=== PATIENT | female | born 1935 | race Caucasian/White ===

== ENCOUNTER 2024-10-10 08:04 | Day surgery (SDC) | payer MEDICARE, BC ==
[~2024-10-10] VITALS: Ht 157.5 cm; Wt 79.1 kg
[2024-10-10] VITALS (8 sets, daily range): BP systolic 123–152; BP diastolic 62–74; PULSE 61–80; RESP 13–18; TEMP 98.1; O2SAT 92–96
[2024-10-10] MEDS ORDERED: VANCOMYCIN 1,500MG inj. 1,500 MG in normal saline 500ml IV soln 300 ML IV ONE (08:36)
[2024-10-10] MEDS ORDERED: ceFAZolin 2gm/dext,iso 50mL 50 ML IV ONE (08:36)
[2024-10-10] MEDS ORDERED: ISOS60TA71 PO (08:51)
[2024-10-10] MEDS ORDERED: BREX2TAB PO (08:51)
[2024-10-10] MEDS ORDERED: ATOR40TA72 PO (08:51)
[2024-10-10] MEDS ORDERED: ESOM40CA66 PO (08:51)
[2024-10-10] MEDS ORDERED: CARV6.2553 PO (08:51)
[2024-10-10] MEDS ORDERED: LOSA100T58 PO (08:51)
[2024-10-10] MEDS ORDERED: BREX0.5T PO (08:51)
[2024-10-10] MEDS ORDERED: HYDR25TA4 PO (08:52)
[2024-10-10] MEDS ORDERED: BENZ-268 PO (08:53)
[2024-10-10] MEDS ORDERED: FLUO20CA41 PO (08:54)
[2024-10-10] MEDS ORDERED: DONE10TA19 PO (08:55)
[2024-10-10 08:58] LABS: MEAN PLATELET VOLUME 9.1 FL (7.4-10.4); RED CELL DISTRIBUTION WIDTH 17.3 % (11.5-14.5)
[2024-10-10 09:09] LABS: INR 1.1 INR
[2024-10-10] MEDS: VANCOMYCIN/H2O 1.5g/300mL PB 300 ML IV ONE (09:16)
[2024-10-10] MEDS: normal saline 1000ml 1,000 ML IV SCH (09:17)
[2024-10-10 09:22] LABS: CREATININE 0.94 MG/DL (0.40-0.90); TOTAL CARBON DIOXIDE 28.4 MMOL/L (24-32); eCRCL 34 ML/MIN; eGFR 56 ML/MIN
[2024-10-10] MEDS: potassium Cl 20 mEq SR tablet PO STA (09:54)
--- NOTE | 2024-10-10 10:18 | ELECTROCARDIOGRAPH REPORT ---
[facility] Test Date: 2024-10-10 Test Time: 08:22:22 Pat Name: LUH DOYLE Department: SHORT STAY 1ST FLOOR Room: Gender: F Gambling Cashier: ASHLEY : 1935 Requested By: MORIAH WALDRON Order Number: [id number] Reading MD: Dr. JASMEET Wagoner Measurements Intervals [place] Rate: 67 P: 70 MO: 185 QRS: -69 QRSD: 157 T: 93 QT: 439 QTc: 464 Interpretive Statements Sinus rhythm Left bundle branch block Electronically Signed On 10-10-2024 15:51:[address] JASMEET Wagoner Please click the below link to view image of tracing.
[2024-10-10] MEDS ORDERED: fentaNYL/PF 50MCG/1 ML 2ML syringe ONE (10:44)
[2024-10-10] MEDS ORDERED: midazolam 1 mg/ML 2ml injection ONE (10:44)
[2024-10-10] MEDS ORDERED: LIDOcaine 1% W/epiNEPHrine 1:100,000 20ml vial ONE (10:44)
[2024-10-10] MEDS ORDERED: vancomycin 1,000mg inj ONE (10:44)
[2024-10-10] MEDS ORDERED: iohexol 350 MG/ML 50ML vial IV ONE (10:44)
[2024-10-10] MEDS ORDERED: flumazenil 0.1 mg/ml inj. 10mL vial IV ONE (12:11)
[2024-10-10] MEDS ORDERED: normal saline 1000ml 1,000 ML IV SCH (13:40)
--- NOTE | 2024-10-10 14:27 | RADIOLOGY REPORT ---
EXAM: DI CHEST,SINGLE VIEW Indication: s/p Pacemaker Technique: Single frontal view of the chest was obtained Comparison: None FINDINGS: Lines and Tubes: Cardiac pacemaker projects over the left chest wall. Lungs: No focal consolidation. Pleura: No effusion. No pneumothorax. Cardiomediastinal contours: Unremarkable. Atherosclerotic vascular calcifications of the thoracic ao rta are noted. Bones: No acute osseous abnormality. IMPRESSION: No acute cardiopulmonary disease.
--- NOTE | 2024-10-11 16:34 | CARDIOLOGY REPORT ---
DATE OF SERVICE: 10/10/2024 DICTATING PHYSICIAN: AMAN WALDRON DO CARDIAC CATHETERIZATION REPORT REFERRING PHYSICIAN: Aman Waldron DO PROCEDURES PERFORMED: * Coronary venography. * Placement of a coronary venous/LV electrode. * Placement of an RV ICD electrode. * Placement of a right atrial electrode. * Implant of a biventricular pacemaker / ICD pulse generator. * 90 minutes conscious sedation supervision. PREOPERATIVE DIAGNOSES: * Cardiomyopathy with nondilated left ventricle. * Left bundle branch block. * LVEF 30%-35%. * Class II to III symptoms. POSTOPERATIVE DIAGNOSES: * Cardiomyopathy with nondilated left ventricle. * Left bundle branch block. * LVEF 30%-35%. * Class II to III symptoms. CLINICAL HISTORY: This 88-year-old woman has recently been seen by me for complaints of increasing dyspnea and fatigue. An echocardiogram demonstrates a reduction in her LVEF to 30%-35% in conjunction with the presence of left bundle branch block. The patient also clearly had wall motion abnormalities/dyssynchrony of LV contractility in keeping with LBBB. ANESTHESIA: Conscious sedation with local to skin. DEVICES IMPLANTED: Medtronic coronary venous/LV electrode model #4798, serial #[id number]; Medtronic RV ICD electrode, model #6935 and serial #[id number]; Medtronic atrial electrode model #4076 and serial #[id number]; Medtronic pulse generator model #[id number] and serial #[id number]. DESCRIPTION OF PROCEDURE: The patient was sedated with fentanyl and Versed. She was then prepared and draped in the usual manner. The left pectoral region was very liberally infiltrated with 1% lidocaine containing a 1 to 100,000 mixture of epinephrine. Using a micropuncture set, a small guidewire was placed in the left subclavian vein. A 5 cm incision was made directly below the guidewire and a subcutaneous pocket was created with electrocautery. The guidewire was then pulled into the pocket and using a micropuncture size up sheath, a 9-Malawian dilator and sheath assembly were placed in the central venous circulation. The dilator and guidewire were removed and an 8-Malawian extended multipurpose catheter was positioned in the coronary sinus and directly into a posterolateral coronary vein. Coronary venography was performed, which also demonstrated a satisfactory mid-to-high lateral coronary vein. Nevertheless, the left ventricular electrode was positioned in the posterolateral vein. The electrode was secured to the sidewall using standard technique. Sensing and pacing evaluation demonstrated an impedance of 798 ohms, a pacing threshold of 1.25 volts and a pulse width of 0.4 milliseconds. Using the same Seldinger technique and micropuncture set, access was gained to the left subclavian and a 9.5-Malawian sheath was placed in the central venous circulation. Using the sheath, the RV ICD electrode was passed down to the right atrium prolapsed across the tricuspid valve and ultimately placed in the right ventricular apex. The screw was extended. The stylet was withdrawn. Sensing and pacing demonstrated an R wave of 3.8 millivolts and impedance of 551 ohms and a threshold for capture of 0.5 volts at a pulse width of 0.4 milliseconds. A 7-Malawian sheath was also placed in the subclavian vein using the same Seldinger technique. This sheath was used to pass the right atrial electrode into the mid-right atrium and then using a J-shaped stylet, it was positioned in the right atrial appendage. The screw was extended. The stylet was withdrawn. Sensing and pacing evaluation demonstrated a P wave amplitude of 2.5 millivolts, an impedance of 494 ohms and a threshold for capture of 0.5 millivolts with a pulse width of 0.4 milliseconds. All sheaths were removed while ensuring stability of the electrodes and fluoroscopic observation. A 3-0 Vicryl suture was placed around the electrodes at their exit point from the pectoral fascia. The electrodes were then secured to the pectoral fascia using two 0 Ethibond sutures around each of the suturing sleeves. Next, the generator was attached to the electrodes and together they were placed in the pocket. The generator was suspended with an 0 Ethibond suture. A TYRX pouch was placed in the pocket. The pocket was then irrigated with a vancomycin antibiotic solution. The subcutaneous layer was closed with 3-0 Vicryl and the skin was approximated with 4-0 Monocryl. ESTIMATED BLOOD LOSS: 15 mL. No complications. Initial kati parameters were as follows: Mode DDD, LRL 60 PPM, upper activity rate 120 BPM, upper tracking rate 130 BPM, paced AV delay 130 milliseconds, sensed AV delay 100 milliseconds. Amplitude, pulse width and sensitivity in both atrial and right ventricular electrodes was set at 3.5 volts, 0.4 milliseconds and 0.3 millivolts respectively. Left ventricular amplitude was set at 2.5 volts with a pulse width of 0.4 milliseconds. For the ventricular tachyarrhythmia management algorithms, please see the Medtronic implant record. A chest x-ray later demonstrated full inflation of both lungs in proper position of the electrodes. AMAN WALDRON DO TID: [id number] RECEIPT: [id number] [facility] MTDD
== END 2024-10-10 15:45 | disposition home or self-care (01) ==
LOC: SSTAY O 08:04
PROVIDERS: ATTEND Internal Medicine Cardiovascular Disease
DX: I42.0 Dilated cardiomyopathy (principal); I44.7 Left bundle-branch block, unspecified; I42.8 Other cardiomyopathies; I11.0 Hypertensive heart disease with heart failure; I50.22 Chronic systolic (congestive) heart failure; E78.00 Pure hypercholesterolemia, unspecified; E11.65 Type 2 diabetes mellitus with hyperglycemia; E66.9 Obesity, unspecified; F32.A Depression, unspecified; Z79.899 Other long term (current) drug therapy; Z96.612 Presence of left artificial shoulder joint; Z96.652 Presence of left artificial knee joint; Z98.41 Cataract extraction status, right eye; Z98.42 Cataract extraction status, left eye; Z95.810 Presence of automatic (implantable) cardiac defibrillator; Z88.2 Allergy status to sulfonamides; Z68.31 Body mass index [BMI] 31.0-31.9, adult
CPT/HCPCS: 33225; 33249; 36415; 71045; 80053; 83735; 85025; 85610; 93005; 99152; 99153; A4565; A6258; C1769; C1882; C1895; C1900; J1171; J2250; J3010; J3373; J3375; J3490; J7030; Q9967; C1898